=== PATIENT | female | born 1930 | race Caucasian/White ===

== ENCOUNTER 2018-04-10 18:22 | Observation (INO) | payer MEDICARE, OTHER ==
[~2018-04-10] VITALS: Ht 144.8 cm; Wt 62.8 kg
[~2018-04-10 18:22] MED LIST: ASPI-621 PO; ATOR20TA9 PO; BRIM5DRO2 EACHEYE; BRIN10DR EACHEYE; DABI75CA3 PO; LOSA25TA6 PO; OMEP-110 PO; TICA90TA PO; TRAV5DRO EACHEYE
[2018-04-10] MEDS ORDERED: ACETAMINOPHEN 500 MG TABLET PO ONE (19:00)
[2018-04-10] MEDS ORDERED: DIPH,PERTUSS(ACELL),TET VAC/PF 0.5 ML IM-VACC ONE ×2 (19:00→19:34)
[2018-04-10] MEDS ORDERED: ACETAMINOPHEN 500 MG TABLET ONE (19:32)
[2018-04-10 19:36] LABS: BASOPHILS # (AUTO) 0.03 x10^3/uL (0-0.1); BASOPHILS % (AUTO) 0 % (0-1); EOSINOPHILS # (AUTO) 0.07 x10^3/uL (0-0.4); EOSINOPHILS % (AUTO) 1 % (1-7); LYMPHOCYTES # (AUTO) 1.36 x10^3/uL (1-3.4); LYMPHOCYTES % (AUTO) 14 % (22-44); MD NO; MEAN CORPUSCULAR HEMOGLOBIN 30.6 pg (27.0-34.8); MEAN CORPUSCULAR VOLUME 90.1 fL (80-100); MONOCYTES # (AUTO) 0.63 x10^3/uL (0.2-0.8); MONOCYTES % (AUTO) 7 % (2-9); NEUTROPHILS # (AUTO) 7.57 x10^3/uL (1.8-6.8); NEUTROPHILS % (AUTO) 78 % (42-75); PLATELET COUNT 215 x10^3/uL (130-400); RED BLOOD COUNT 4.35 x10^6/uL (3.82-5.3); RED CELL DISTRIBUTION WIDTH 13.9 % (9.6-15.2)
[2018-04-10 19:43] LABS: ALBUMIN 3.7 g/dL (3.4-5.0); ANION GAP 11 mmol/L (5-15); CALCIUM 8.9 mg/dL (8.5-10.1); CHLORIDE 105 mmol/L (98-107)
[2018-04-10] MEDS ORDERED: OXYMETAZOLINE NASAL SPRAY 0.05%, 15ML ONE (20:50)
[2018-04-10] MEDS ORDERED: LIDOCAINE 1%-EPI 1:100K, 30ML ONE (20:50)
[2018-04-10] MEDS ORDERED: OXYMETAZOLINE NASAL SPRAY 0.05%, 15ML NAS ONE (21:00)
[2018-04-10] MEDS ORDERED: LIDOCAINE 1%-EPI 1:100K, 50ML INFIL ONE (21:00)
[2018-04-11] VITALS (10 sets, daily range): BP systolic 106–184; BP diastolic 58–87
[2018-04-11] MEDS ORDERED: hydrALAzine 20 MG/ML, 1ML IVPush PRN (00:30)
[2018-04-11] MEDS ORDERED: ONDANSETRON ODT 4 MG PO PRN (00:30)
[2018-04-11] MEDS ORDERED: LATANOPROST OPHTH 0.005%, 2.5ML EACHEYE SCH ×2 (01:00)
[2018-04-11] MEDS: ATORVASTATIN 20 MG TABLET PO SCH ×2 (01:23→20:49)
[2018-04-11 06:09] LABS: TROPONIN I < 0.015 ng/mL (0.000-0.045)
[2018-04-11] MEDS: LOSARTAN 25MG TABLET PO SCH (08:48)
[2018-04-11] MEDS: OMEPRAZOLE 20 MG CAPSULE.DR PO SCH (08:48)
[2018-04-11] MEDS: BRIMONIDINE TART. OPHTH 0.2%, 5ML EACHEYE SCH ×2 (09:00→20:51)
[2018-04-11] MEDS: BRINZOLAMIDE EACHEYE SCH ×2 (09:00→20:50)
[2018-04-11] MEDS: TIMOLOL OPHTH 0.5%, 5ML EACHEYE SCH ×2 (09:19→20:51)
[2018-04-11] MEDS ORDERED: MAGN300C PO (10:46)
[2018-04-11] MEDS ORDERED: RIVA10TA PO (10:46)
[2018-04-11] MEDS ORDERED: GLIP-33 PO (10:46)
[2018-04-11] MEDS ORDERED: vit PO (10:46)
[2018-04-11] MEDS ORDERED: ACET1TAB64 PO (10:46)
[2018-04-11] MEDS ORDERED: SOLI5TAB2 PO (10:46)
[2018-04-11] MEDS ORDERED: LEVO25TA4 PO (10:46)
[2018-04-11] MEDS ORDERED: CEPH-368 PO (17:06)
[2018-04-11] MEDS: ACETAMINOPHEN 325 MG TABLET PO PRN (17:36)
[2018-04-11] MEDS ORDERED: SODIUM CHLORIDE 0.9% 1,000 ML IV SCH (18:00)
[2018-04-12] VITALS (7 sets, daily range): BP systolic 131–155; BP diastolic 54–78
[2018-04-12] MEDS: ACETAMINOPHEN 325 MG TABLET PO PRN (06:10)
[2018-04-12] MEDS: BRIMONIDINE TART. OPHTH 0.2%, 5ML EACHEYE SCH (09:00)
[2018-04-12] MEDS: BRINZOLAMIDE EACHEYE SCH (09:00)
[2018-04-12] MEDS: TIMOLOL OPHTH 0.5%, 5ML EACHEYE SCH (09:07)
[2018-04-12] MEDS: LOSARTAN 25MG TABLET PO SCH (09:08)
[2018-04-12] MEDS: OMEPRAZOLE 20 MG CAPSULE.DR PO SCH (09:08)
== END 2018-04-12 11:12 | disposition home or self-care (01) ==
LOC: ED 19:33 → INTOOBSV 23:11 → EDIP 23:11 → 5SO 04-11 00:16 → DCLOUNGE 04-12 10:54
PROVIDERS: ADMIT Hospitalist; ATTEND Hospitalist
DX: R55 Syncope and collapse (principal); D68.69 Other thrombophilia; S01.511A Laceration without foreign body of lip, initial encounter; S89.91XA Unspecified injury of right lower leg, initial encounter; E11.22 Type 2 diabetes mellitus with diabetic chronic kidney disease; I13.10 Hypertensive heart and chronic kidney disease without heart failure, with stage 1 through stage 4 chronic kidney disease, or unspecified chronic kidney disease; I25.10 Atherosclerotic heart disease of native coronary artery without angina pectoris; M19.90 Unspecified osteoarthritis, unspecified site; N18.9 Chronic kidney disease, unspecified; R04.0 Epistaxis; I48.91 Unspecified atrial fibrillation; Z88.8 Allergy status to other drugs, medicaments and biological substances; Z95.5 Presence of coronary angioplasty implant and graft; Z83.3 Family history of diabetes mellitus; Z82.0 Family history of epilepsy and other diseases of the nervous system; Z79.01 Long term (current) use of anticoagulants; Z79.82 Long term (current) use of aspirin; Z82.62 Family history of osteoporosis; Z23 Encounter for immunization; W01.0XXA Fall on same level from slipping, tripping and stumbling without subsequent striking against object, initial encounter; Y92.89 Other specified places as the place of occurrence of the external cause; Y93.01 Activity, walking, marching and hiking; Y99.8 Other external cause status
CPT/HCPCS: 12051; 30901; 36415; 70450; 70486; 71045; 72125; 73564; 80048; 82040; 84484; 85025; 90471; 90715; 93005; 93306; 96361; 96374; 97162; 97165; 99285; G0378; J0360; J7030; Q0162

== ENCOUNTER 2019-07-06 15:32 | Observation (INO) | payer MEDICARE ==
[~2019-07-06] VITALS: Ht 147.3 cm; Wt 62.9 kg
[~2019-07-06 15:32] MED LIST changes: +ACET1TAB64 PO; -ASPI-621 PO; +ASPI81TA45 PO; +ATOR20TA37 PO; -ATOR20TA9 PO; +CEPH-368 PO; +GLIP-33 PO; +LEVO25TA4 PO; +LOSA25TA25 PO; -LOSA25TA6 PO; +MAGN300C PO; +RIVA10TA2 PO; +SOLI5TAB2 PO; +vit PO
--- NOTE | 2019-07-06 16:07 | NUR ---
THIS IS AN 88 YO F BIB [facility] FROM HOME WITH SUDDEN ONSET CHEST PAIN. CURRENTLY HAS NO PAIN AFTER RECEIVING NITRO AND ASPIRIN FROM [facility]. PATIENT IS RESTING ON GURNEY AND COVERSING WITH STAFF. SIDE RAILS UPX2. FAMILY IS AT BEDSIDE. RESPIRATIONS ARE EVEN AND UNLABORED. PATIENT IS IN NO ACUTE DISTRESS. EKG DONE AND GIVEN TO PROVIDER. WILL CONTINUE TO MONITOR.
[2019-07-06] MEDS ORDERED: SODIUM CHLORIDE FLUSH 10ML SYR IVF ONE (17:00)
--- NOTE | 2019-07-06 17:08 | NUR ---
AMBULATED WITH PATIENT TO BR. PT STEADY ON FEET WITH STAND-BY ASSIST.
[2019-07-06] MEDS ORDERED: TROS20TA2 PO (17:11)
[2019-07-06] MEDS ORDERED: TIMO5DRO28 EACHEYE (17:14)
[2019-07-06] MEDS ORDERED: BIMA2.5D EACHEYE (17:15)
[2019-07-06 17:16] LABS: BASOPHILS # (AUTO) 0.04 x10^3/uL (0-0.1); BASOPHILS % (AUTO) 1 % (0-1); EOSINOPHILS # (AUTO) 0.19 x10^3/uL (0-0.4); EOSINOPHILS % (AUTO) 3 % (1-7); LYMPHOCYTES # (AUTO) 1.77 x10^3/uL (1-3.4); LYMPHOCYTES % (AUTO) 29 % (22-44); MD NO; MEAN CORPUSCULAR HGB CONC 32.7 g/dL (32.4-35.8); MEAN PLATELET VOLUME 8.1 fL (7.4-10.4); MONOCYTES # (AUTO) 0.61 x10^3/uL (0.2-0.8); MONOCYTES % (AUTO) 10 % (2-9); NEUTROPHILS # (AUTO) 3.45 x10^3/uL (1.8-6.8); NEUTROPHILS % (AUTO) 57 % (42-75); PLATELET COUNT 256 x10^3/uL (130-400); RED CELL DISTRIBUTION WIDTH 13.9 % (9.6-15.2)
[2019-07-06] MEDS ORDERED: CHOL200024 PO (17:16)
[2019-07-06] MEDS ORDERED: ACET325T14 PO (17:17)
[2019-07-06 17:27] LABS: ALBUMIN 3.5 g/dL (3.4-5.0); ANION GAP 3 mmol/L (5-15); CALCIUM 8.8 mg/dL (8.5-10.1); CHLORIDE 110 mmol/L (98-107); CREATININE 1.19 mg/dL (0.55-1.02)
[2019-07-06 17:31] LABS: TROPONIN I < 0.015 ng/mL (0.000-0.045)
--- NOTE | 2019-07-06 18:20 | NUR ---
PATIENT RESTING ON GURNEY TALKING ON THE PHONE. SIDE RAILS UPX2. DENIES FURTHER NEEDS AT THIS TIME.
--- NOTE | 2019-07-06 19:17 | NUR ---
REPORT CALLED TO FLOOR RN ALL QUESTIONS ADDRESSED AT THIS TIME
[2019-07-06] MEDS ORDERED: OXYcodone IR 5MG TABLET PO PRN (19:30)
[2019-07-06] MEDS ORDERED: ONDANSETRON ODT 4 MG PO PRN (19:30)
[2019-07-06] MEDS ORDERED: BISACODYL 10 MG SUPP PR PRN (19:30)
[2019-07-06] MEDS ORDERED: ONDANSETRON 2MG/ML, 2ML IVPush PRN (19:30)
[2019-07-06] MEDS ORDERED: LABETALOL 5MG/ML, 20ML IVPush PRN (19:30)
[2019-07-06] MEDS ORDERED: PROMETHAZINE 25 MG/ML, 1ML IM PRN (19:30)
[2019-07-06] MEDS ORDERED: NITROGLYCERIN 0.4 MG BOTTLE (25 TABS) SL PRN (19:30)
[2019-07-06] MEDS ORDERED: DOCUSATE 100 MG CAPSULE PO PRN (19:30)
[2019-07-06] MEDS ORDERED: ACETAMINOPHEN 325 MG TABLET PO PRN ×2 (19:30→20:00)
[2019-07-06] MEDS ORDERED: POLYETHYLENE GLYCOL 17 GM PACKET PO PRN (19:30)
[2019-07-06] MEDS ORDERED: morphine SULFATE 10 MG/ML, 1ML IVPush PRN (19:30)
--- NOTE | 2019-07-06 20:00 | NUR ---
PT UP TO RESTROOM WITH ONE ASSIST, STEADY GAIT. PT REQUESTING FOOD AT THIS TIME. MD TO BE UPDATED
[2019-07-06] MEDS: INSULIN LISPRO 100 UNITS/ML, PEN SQ-INSULIN SCH (21:00)
[2019-07-06 21:20] LABS: FREE T4 (FREE THYROXINE) 1.02 ng/dL (0.76-1.46); HEMOGLOBIN A1C 7.4 % (4.2-6.3)
[2019-07-06] MEDS: SODIUM CHLORIDE 0.9% 1,000 ML IV SCH (21:48)
[2019-07-06] MEDS: ATORVASTATIN 20 MG TABLET PO SCH (21:49)
[2019-07-06] MEDS: HEPARIN 5,000 UNITS/ML, 1ML SQ SCH (21:49)
[2019-07-06 21:58] VITALS: BP 154/79
[2019-07-07 01:08] LABS: TROPONIN I < 0.015 ng/mL (0.000-0.045)
[2019-07-07 02:51] VITALS: BP 135/75
[2019-07-07 05:27] LABS: BASOPHILS # (AUTO) 0.05 x10^3/uL (0-0.1); BASOPHILS % (AUTO) 1 % (0-1); EOSINOPHILS # (AUTO) 0.19 x10^3/uL (0-0.4); EOSINOPHILS % (AUTO) 4 % (1-7); LYMPHOCYTES # (AUTO) 1.63 x10^3/uL (1-3.4); LYMPHOCYTES % (AUTO) 35 % (22-44); MD NO; MEAN CORPUSCULAR HEMOGLOBIN 29.8 pg (27.0-34.8); MEAN CORPUSCULAR HGB CONC 32.4 g/dL (32.4-35.8); MEAN CORPUSCULAR VOLUME 91.9 fL (80-100); MEAN PLATELET VOLUME 8.5 fL (7.4-10.4); MONOCYTES # (AUTO) 0.42 x10^3/uL (0.2-0.8); MONOCYTES % (AUTO) 9 % (2-9); NEUTROPHILS # (AUTO) 2.33 x10^3/uL (1.8-6.8); NEUTROPHILS % (AUTO) 50 % (42-75); PLATELET COUNT 216 x10^3/uL (130-400); RED BLOOD COUNT 4.16 x10^6/uL (3.82-5.3); RED CELL DISTRIBUTION WIDTH 13.8 % (9.6-15.2)
[2019-07-07] MEDS: HEPARIN 5,000 UNITS/ML, 1ML SQ SCH ×3 (05:34→17:06)
[2019-07-07] MEDS: SODIUM CHLORIDE 0.9% 1,000 ML IV SCH (05:34)
[2019-07-07] MEDS: ASPIRIN 325 MG TABLET EC PO SCH (05:34)
[2019-07-07 05:40] LABS: CHLORIDE 113 mmol/L (98-107)
[2019-07-07 05:47] LABS: ALANINE AMINOTRANSFERASE 21 U/L (12-78); ALBUMIN 2.9 g/dL (3.4-5.0); ALKALINE PHOSPHATASE 49 U/L (45-117); ANION GAP 8 mmol/L (5-15); BILIRUBIN,TOTAL 0.3 mg/dL (0.2-1.0); CALCIUM 8.3 mg/dL (8.5-10.1); CHOL/HDL RATIO 3.6; CHOLESTEROL, TOTAL 141 mg/dL (140-239); CREATININE 1.03 mg/dL (0.55-1.02); HDL CHOL % 28 % (28-40); HDL CHOLESTEROL (DIRECT) 39 mg/dL (40-60); LDL CHOLESTEROL,CALCULATED 55 mg/dL (54-169); LDL/HDL RATIO 1.4 (0.5-3.0); TOTAL PROTEIN 6.2 g/dL (6.4-8.2); TRIGLYCERIDES 236 mg/dL (50-200); VLDL CHOLESTEROL 47 mg/dL (0-25)
[2019-07-07] MEDS: INSULIN LISPRO 100 UNITS/ML, PEN SQ-INSULIN SCH ×4 (07:00→21:00)
[2019-07-07 07:12] VITALS: BP 160/83
[2019-07-07] MEDS ORDERED: REGADENOSON 0.4 MG/5 ML SYRINGE ONE (08:33)
[2019-07-07] MEDS: MAGNESIUM OXIDE 400 MG TABLET PO SCH (08:59)
[2019-07-07] MEDS: CHOLECALCIFEROL 1,000 UNIT TABLET PO SCH (08:59)
[2019-07-07] MEDS: TIMOLOL OPHTH 0.25%, 5ML EACHEYE SCH (08:59)
[2019-07-07] MEDS: LEVOTHYROXINE 25 MCG TABLET PO SCH (09:00)
[2019-07-07] MEDS ORDERED: LOSARTAN 25MG TABLET PO SCH (09:00)
[2019-07-07] MEDS: OMEPRAZOLE 20 MG CAPSULE.DR PO SCH (09:00)
[2019-07-07] MEDS: LOSARTAN 25MG TABLET PO SCH (09:00)
[2019-07-07 14:51] VITALS: BP 140/76
[2019-07-07] MEDS ORDERED: SODIUM CHLORIDE 0.9% 1,000 ML IV SCH (15:00)
[2019-07-07] MEDS: METOPROLOL TARTRATE 25 MG TABLET PO SCH (17:40)
[2019-07-07 19:51] VITALS: BP 113/74
[2019-07-07] MEDS: ATORVASTATIN 20 MG TABLET PO SCH (22:16)
[2019-07-08 03:05] VITALS: BP 138/62
[2019-07-08 05:40] LABS: ALBUMIN 3.1 g/dL (3.4-5.0); ANION GAP 6 mmol/L (5-15); CALCIUM 8.6 mg/dL (8.5-10.1); CHLORIDE 112 mmol/L (98-107)
[2019-07-08 05:41] VITALS: BP 123/72
[2019-07-08] MEDS: ASPIRIN 325 MG TABLET EC PO SCH (05:42)
[2019-07-08 05:43] LABS: ALANINE AMINOTRANSFERASE 21 U/L (12-78); ALKALINE PHOSPHATASE 52 U/L (45-117); BILIRUBIN,TOTAL 0.4 mg/dL (0.2-1.0); CREATININE 1.03 mg/dL (0.55-1.02); TOTAL PROTEIN 6.6 g/dL (6.4-8.2)
[2019-07-08] MEDS: HEPARIN 5,000 UNITS/ML, 1ML SQ SCH ×2 (05:43→12:08)
[2019-07-08] MEDS: METOPROLOL TARTRATE 25 MG TABLET PO SCH (05:43)
[2019-07-08] MEDS: INSULIN LISPRO 100 UNITS/ML, PEN SQ-INSULIN SCH ×2 (08:06→12:03)
[2019-07-08] MEDS: TIMOLOL OPHTH 0.25%, 5ML EACHEYE SCH (08:17)
[2019-07-08] MEDS: CHOLECALCIFEROL 1,000 UNIT TABLET PO SCH (08:17)
[2019-07-08 08:18] VITALS: BP 126/69
[2019-07-08] MEDS: LEVOTHYROXINE 25 MCG TABLET PO SCH (08:18)
[2019-07-08] MEDS: OMEPRAZOLE 20 MG CAPSULE.DR PO SCH (08:18)
[2019-07-08] MEDS: MAGNESIUM OXIDE 400 MG TABLET PO SCH (08:18)
[2019-07-08] MEDS: LOSARTAN 25MG TABLET PO SCH (08:18)
[2019-07-08] MEDS ORDERED: SODIUM CHLORIDE 0.9% 1,000 ML IV SCH (08:30)
[2019-07-08] MEDS ORDERED: OMNIPAQUE 350 MG/ML, 100ML BOTTLE ONE (11:15)
[2019-07-08 12:36] LABS: ALANINE AMINOTRANSFERASE 21 U/L (12-78); ALBUMIN 3.2 g/dL (3.4-5.0); ANION GAP 7 mmol/L (5-15); CALCIUM 8.3 mg/dL (8.5-10.1); CHLORIDE 108 mmol/L (98-107)
[2019-07-08 12:38] LABS: ALKALINE PHOSPHATASE 55 U/L (45-117); BILIRUBIN,TOTAL 0.5 mg/dL (0.2-1.0); CREATININE 1.02 mg/dL (0.55-1.02); TOTAL PROTEIN 6.7 g/dL (6.4-8.2)
[2019-07-08] MEDS ORDERED: METO25TA35 PO (12:49)
[2019-07-08] MEDS ORDERED: ASPI-515 PO (12:49)
[2019-07-08] MEDS ORDERED: METOPROLOL TARTRATE 25 MG TABLET PO SCH (18:00)
== END 2019-07-08 13:58 | disposition home or self-care (01) ==
LOC: ED 18:11 → INTOOBSV 18:12 → EDIP 18:12 → ED 18:39 → 5SO 20:54 → DCLOUNGE 07-08 13:51
PROVIDERS: ADMIT Internal Medicine; ATTEND Internal Medicine
DX: R07.89 Other chest pain (principal); N17.0 Acute kidney failure with tubular necrosis; E03.9 Hypothyroidism, unspecified; E11.9 Type 2 diabetes mellitus without complications; I10 Essential (primary) hypertension; I25.10 Atherosclerotic heart disease of native coronary artery without angina pectoris; I48.0 Paroxysmal atrial fibrillation; K21.9 Gastro-esophageal reflux disease without esophagitis; Z79.82 Long term (current) use of aspirin; Z95.5 Presence of coronary angioplasty implant and graft; Z88.8 Allergy status to other drugs, medicaments and biological substances; Z79.899 Other long term (current) drug therapy
CPT/HCPCS: 36415; 71045; 71275; 78452; 80048; 80053; 80061; 82040; 82962; 83036; 83735; 84439; 84443; 84484; 85025; 85379; 93017; 93306; 93970; 96372; 99285; A9502; C9898; G0378; J1644; J2785; J7030; Q9967

== ENCOUNTER 2019-10-21 16:06 | Emergency (ER) | payer MEDICARE ==
[~2019-10-21] VITALS: Ht 149.9 cm; Wt 64.0 kg
[~2019-10-21 16:06] MED LIST changes: +ACET325T14 PO; +ASPI-515 PO; +BIMA2.5D EACHEYE; +CHOL200024 PO; +METO25TA35 PO; +TIMO5DRO28 EACHEYE; +TROS20TA2 PO
--- NOTE | 2019-10-21 16:07 | NUR ---
89 YR OLD FEMALE ARRIVED VIA EMS. PER REPORT APPROX [phone] PT WAS ON THE PHONE, HEARD PHONE CONTINUING TO RING. CHECKED ON PT, FOUND HER FACE DOWN ON THE GROUND. PT WITH LEFT SIDED GAZE, UNABLE TO ANSWER QUESTIONS, NOT FOLLOWING COMMANDS. DECREASED MOVEMENT ON RIGHT SIDE. BS 132, IV IN LEFT HAND. DR REID AT BEDSIDE FOR EVAL. PT PLACED ON MONITORS, SB PER MONITOR. BP ELEVATED.
--- NOTE | 2019-10-21 16:10 | NUR ---
MT NOTE: [facility] PRE ALERT FOR CODE NEURO. CODE NEURO CALLED @[phone] AND NEURO PAGED @[phone].
[2019-10-21 16:19] LABS: BASOPHILS # (AUTO) 0.05 x10^3/uL (0-0.1); BASOPHILS % (AUTO) 1 % (0-1); EOSINOPHILS % (AUTO) 4 % (1-7); LYMPHOCYTES # (AUTO) 1.38 x10^3/uL (1-3.4); LYMPHOCYTES % (AUTO) 25 % (22-44); MD NO; MEAN CORPUSCULAR HEMOGLOBIN 29.1 pg (27.0-34.8); MEAN CORPUSCULAR HGB CONC 32.4 g/dL (32.4-35.8); MEAN CORPUSCULAR VOLUME 89.8 fL (80-100); MEAN PLATELET VOLUME 7.7 fL (7.4-10.4); MONOCYTES # (AUTO) 0.47 x10^3/uL (0.2-0.8); MONOCYTES % (AUTO) 9 % (2-9); NEUTROPHILS # (AUTO) 3.38 x10^3/uL (1.8-6.8); NEUTROPHILS % (AUTO) 62 % (42-75); PLATELET COUNT 260 x10^3/uL (130-400); RED BLOOD COUNT 4.47 x10^6/uL (3.82-5.3); RED CELL DISTRIBUTION WIDTH 14.7 % (9.6-15.2)
--- NOTE | 2019-10-21 16:25 | NUR ---
PT TO CT VIA [facility] WITH MONITOR. SB PER MONITOR.
[2019-10-21 16:35] LABS: INTERNATIONAL NORMALIZED RATIO 1.01 (0.93-1.1); PROTHROMBIN TIME 10.7 Seconds (9.6-11.5)
--- NOTE | 2019-10-21 16:50 | NUR ---
RETURN TO ROOM FROM CT.
--- NOTE | 2019-10-21 16:58 | NUR ---
PTS ED AT BEDSIDE. AWARE OF PENDING TRANSPORT TO [facility].
[2019-10-21] MEDS ORDERED: OMNIPAQUE 350 MG/ML, 100ML BOTTLE ONE (17:00)
--- NOTE | 2019-10-21 17:08 | NUR ---
REPORT CALLED TO ALEJANDRO OLIVER AT [facility].
--- NOTE | 2019-10-21 17:08 | NUR ---
PTS BELONGINGS GIVEN TO PTS ED, INCLUDING YELLOW METAL EARRINGS AND YELLOW METAL NECKLACE WITH YELLOW METAL CHARM.
[2019-10-21 17:10] VITALS: BP 169/62
--- NOTE | 2019-10-21 17:20 | NUR ---
PTS SON RACHEL PHONE NUMBER [phone]
--- NOTE | 2019-10-21 17:24 | NUR ---
EMS HERE TO TRANSPORT PT TO [facility].
--- NOTE | 2019-10-21 17:25 | NUR ---
UNABLE TO RECONCILE MEDICATION LIST. PTS DID NOT HAVE A MEDICATION LIST OR KNOW PTS MEDICATIONS.
== END 2019-10-21 17:30 | disposition short-term general hospital (02) ==
LOC: ED 16:53
DX: I63.512 Cerebral infarction due to unspecified occlusion or stenosis of left middle cerebral artery (principal); R53.1 Weakness; I44.7 Left bundle-branch block, unspecified; R94.31 Abnormal electrocardiogram [ECG] [EKG]; F80.9 Developmental disorder of speech and language, unspecified; M47.812 Spondylosis without myelopathy or radiculopathy, cervical region; E11.9 Type 2 diabetes mellitus without complications; I10 Essential (primary) hypertension; E03.9 Hypothyroidism, unspecified; I48.91 Unspecified atrial fibrillation
CPT/HCPCS: 36415; 70450; 70486; 70496; 70498; 72125; 80047; 85025; 85610; 85730; 93005; 99291; Q9967